=== PATIENT | male | born 1950 | race Caucasian/White ===

== ENCOUNTER 2019-02-24 10:04 | Emergency (ER) | payer MEDICARE ==
[~2019-02-24] VITALS: Ht 172.7 cm; Wt 90.7 kg
[~2019-02-24 10:04] MED LIST: ACET325 PO; AMOCLA875 PO; ASPI81EC; Aspir 8181 MG PO; Bactrim 400-801 EACH PO; CLIN300 PO; CLOP75 PO; Cleocin HCl150 MG PO; DIPATR PO; DOXY100T53 PO; Depo-Testos200 MG/ML IM; ENOX120I SC; ENOX40I SC; FERR325 PO; FIBER GUMMIES2.5 GM PO; FISH OIL 1,2001 EACH PO; FISH1000 PO; FLUT.05NI; HYDACE10B PO; HYDACE7.5; Hydrocodone-Ap1 EA20 PO; Icaps Areds Fo1 EACH PO; LAVAP17G PO; LISI20; LISI20 PO; LORA10 PO; Lyrica225 MG PO; MELO7.5; MELO7.5 PO; METH10 PO; METH5 PO; MULTI VITAMIN1 EACH PO; MULVITMIND; Mobic15 MG PO; NITR.4SL SL; NUVIGIL; NUVIGIL PO; NUVIGIL250 MG; NUVIGIL250 MG PO; NYST100SU MT; OMEP20ER PO; OMEPRAZOLE MAGN20 MG PO; OXYC5; OXYC5 PO; PREG200; PREG200 PO; SILD50TA PO; SIMCOR; SIMCOR PO; SIMV40 PO; Senna8.6 MG PO; TAMS.4ER PO; TESTOSTERO200 MG/1 M IM; Testostero100 MG/1 M; WARF3; WARF4 PO; WARF6 PO; Zofran Odt4 MG SL
[2019-02-24] MEDS ORDERED: Norco 10-325 T1 EACH PO (12:26)
== END 2019-02-24 12:45 | disposition home or self-care (01) ==
LOC: ER 10:04
DX: T84.020A Dislocation of internal right hip prosthesis, initial encounter (principal); Z88.8 Allergy status to other drugs, medicaments and biological substances; Z88.1 Allergy status to other antibiotic agents; Z88.0 Allergy status to penicillin; Z79.899 Other long term (current) drug therapy; Z79.82 Long term (current) use of aspirin; Z79.01 Long term (current) use of anticoagulants; I25.10 Atherosclerotic heart disease of native coronary artery without angina pectoris; Z86.73 Personal history of transient ischemic attack (TIA), and cerebral infarction without residual deficits; N18.9 Chronic kidney disease, unspecified; W19.XXXA Unspecified fall, initial encounter
CPT/HCPCS: 27265; 36415; 73501; 73502; 93005; 93010; 96374-59; 96375-59; 99284-25; J2270; J2405; J2704; J7030

== ENCOUNTER 2019-03-30 18:19 | Emergency (ER) | payer MEDICARE ==
[~2019-03-30] VITALS: Ht 175.3 cm; Wt 91.6 kg
[~2019-03-30 18:19] MED LIST changes: +Norco 10-325 T1 EACH PO
[2019-03-30] MEDS ORDERED: Mobic15 MG PO (18:30)
[2019-03-30] MEDS ORDERED: METH10 PO (20:11)
[2019-03-30] MEDS ORDERED: AMLO10 PO (20:11)
== END 2019-03-30 21:42 | disposition home or self-care (01) ==
LOC: ER 18:19
DX: T84.020A Dislocation of internal right hip prosthesis, initial encounter (principal); I12.9 Hypertensive chronic kidney disease with stage 1 through stage 4 chronic kidney disease, or unspecified chronic kidney disease; N18.9 Chronic kidney disease, unspecified; I25.10 Atherosclerotic heart disease of native coronary artery without angina pectoris; Z96.641 Presence of right artificial hip joint; Z86.73 Personal history of transient ischemic attack (TIA), and cerebral infarction without residual deficits; Z86.718 Personal history of other venous thrombosis and embolism; Z88.1 Allergy status to other antibiotic agents; Z88.0 Allergy status to penicillin; Z79.899 Other long term (current) drug therapy; Z79.82 Long term (current) use of aspirin; Z79.01 Long term (current) use of anticoagulants; Z79.891 Long term (current) use of opiate analgesic; X50.1XXA Overexertion from prolonged static or awkward postures, initial encounter
CPT/HCPCS: 27265; 73501; 73502; 96374-59; 96375-59; 99152; 99283-25; J2270; J2405; J2704; J3010; J7030

== ENCOUNTER 2019-04-19 22:46 | Emergency (ER) | payer MEDICARE ==
[~2019-04-19] VITALS: Ht 175.3 cm; Wt 93.0 kg
[~2019-04-19 22:46] MED LIST changes: +AMLO10 PO
[2019-04-19 23:50] LABS: BASOPHILS ABSOLUTE AUTO 0.03 K/mm3 (0.00-0.23); BASOPHILS PERCENT AUTO 0 % (0-2); EOSINOPHILS ABSOLUTE AUTO 0.04 K/mm3 (0.00-0.68); EOSINOPHILS PERCENT AUTO 1 % (0-6); Hematocrit 28.9 % (37.0-53.0); Hemoglobin 9.5 g/dL (13.5-17.5); IMMATURE GRAN ABSOLUTE AUTO 0.02 K/mm3 (0.00-0.10); IMMATURE GRAN PERCENT AUTO 0 % (0-1); LYMPHOCYTES ABSOLUTE AUTO 1.23 K/mm3 (0.84-5.20); LYMPHOCYTES PERCENT AUTO 14 % (21-46); MONOCYTES ABSOLUTE AUTO 0.44 K/mm3 (0.16-1.47); MONOCYTES PERCENT AUTO 5 % (4-13); Mean Corpuscular HGB 27.5 pg (26.0-34.0); Mean Corpuscular HGB Conc 32.9 g/dL (31.5-36.5); Mean Corpuscular Volume 84 fL (80-100); Mean Platelet Volume 9.7 fL (9.1-12.4); NEUTROPHILS ABSOLUTE AUTO 6.98 K/mm3 (1.96-9.15); NEUTROPHILS PERCENT AUTO 80 % (41-73); Platelet Count 182 K/mm3 (150-400); RDW Coefficient Variation 14.5 % (11.7-14.2); RDW Standard Deviation 43.8 fL (35.1-46.3); Red Blood Cell Count 3.46 M/mm3 (4.30-5.90); White Blood Cell Count 8.74 K/mm3 (4.00-11.30)
[2019-04-20 00:04] LABS: Anion Gap 6 mmol/L (6-16); Blood Urea Nitrogen 22 mg/dL (8-24); Bun/Creatinine Ratio 17.9 (12.0-20.0); CO2, Blood 27 mmol/L (21-32); Calcium, Blood 8.2 mg/dL (8.5-10.1); Chloride, Blood 105 mmol/L (98-108); Creatinine, Blood 1.23 mg/dL (0.60-1.20); Glomerular Filtration Rate >60 (60-); Glucose, Blood 142 mg/dL (70-99); Potassium, Blood 4.3 mmol/L (3.5-5.5); Sodium, Blood 138 mmol/L (136-145)
[2019-04-20 00:11] LABS: Prothrombin Time Results 58.9 Sec (9.7-11.5)
[2019-04-20 00:13] LABS: International Normalized Ratio 6.6
== END 2019-04-20 02:44 | disposition home or self-care (01) ==
LOC: ER 22:46
PROVIDERS: Emergency Medicine
DX: T84.020A Dislocation of internal right hip prosthesis, initial encounter (principal); X58.XXXA Exposure to other specified factors, initial encounter; Z88.8 Allergy status to other drugs, medicaments and biological substances; Z88.1 Allergy status to other antibiotic agents; Z88.0 Allergy status to penicillin; Z79.899 Other long term (current) drug therapy; Z79.82 Long term (current) use of aspirin; Z79.01 Long term (current) use of anticoagulants; I10 Essential (primary) hypertension; I25.10 Atherosclerotic heart disease of native coronary artery without angina pectoris; Z86.73 Personal history of transient ischemic attack (TIA), and cerebral infarction without residual deficits
CPT/HCPCS: 27265; 72170; 80048; 85025; 85610; 96361; 96374; 99152; 99284-25; J1170; J2704; J7030

== ENCOUNTER 2019-07-24 09:53 | Emergency (ER) | payer MEDICARE ==
[~2019-07-24] VITALS: Ht 175.3 cm; Wt 89.8 kg
== END 2019-07-24 17:36 | disposition home or self-care (01) ==
LOC: ER 09:53
DX: T84.020A Dislocation of internal right hip prosthesis, initial encounter (principal); I12.9 Hypertensive chronic kidney disease with stage 1 through stage 4 chronic kidney disease, or unspecified chronic kidney disease; N18.9 Chronic kidney disease, unspecified; I25.10 Atherosclerotic heart disease of native coronary artery without angina pectoris; Z96.641 Presence of right artificial hip joint; Z88.0 Allergy status to penicillin; Z88.8 Allergy status to other drugs, medicaments and biological substances; Z88.1 Allergy status to other antibiotic agents; Z79.82 Long term (current) use of aspirin; Z79.899 Other long term (current) drug therapy; Z86.718 Personal history of other venous thrombosis and embolism; Z86.73 Personal history of transient ischemic attack (TIA), and cerebral infarction without residual deficits; X50.1XXA Overexertion from prolonged static or awkward postures, initial encounter
CPT/HCPCS: 27265; 73501; 73502; 96374-59; 96375-59; 99152; 99284-25; J2250; J2270; J2405; J2704; J7030

== ENCOUNTER 2020-12-19 13:03 | Observation (INO) | payer MEDICARE ==
[~2020-12-19] VITALS: Ht 175.3 cm; Wt 87.9 kg
[~2020-12-19 13:03] MED LIST changes: +CLIN150 PO; +CLON.1 PO; +Daily Multiple1 EACH PO; +Fish Oil 10001000 MG PO; +IRON PO; +KRISTALOSE20 GM PO; +LOSARTAN POTASS25 M2 PO; +PREGABALIN300 MG PO; +PRESERVISION A1 EACH PO; +Roxicodone5 MG PO; -WARF3; +WARF3 PO; +Zestril30 MG PO
[2020-12-19 14:24] LABS: BASOPHILS ABSOLUTE AUTO 0.02 K/mm3 (0.00-0.23); BASOPHILS PERCENT AUTO 0 % (0-2); EOSINOPHILS ABSOLUTE AUTO 0.08 K/mm3 (0.00-0.68); EOSINOPHILS PERCENT AUTO 1 % (0-6); Hematocrit 25.8 % (37.0-53.0); Hemoglobin 8.5 g/dL (13.5-17.5); IMMATURE GRAN ABSOLUTE AUTO 0.06 K/mm3 (0.00-0.10); IMMATURE GRAN PERCENT AUTO 1 % (0-1); LYMPHOCYTES ABSOLUTE AUTO 1.47 K/mm3 (0.84-5.20); LYMPHOCYTES PERCENT AUTO 12 % (21-46); MONOCYTES ABSOLUTE AUTO 1.24 K/mm3 (0.16-1.47); MONOCYTES PERCENT AUTO 10 % (4-13); Mean Corpuscular HGB 29.9 pg (26.0-34.0); Mean Corpuscular HGB Conc 32.9 g/dL (31.5-36.5); Mean Corpuscular Volume 91 fL (80-100); Mean Platelet Volume 9.2 fL (9.1-12.4); NEUTROPHILS ABSOLUTE AUTO 9.36 K/mm3 (1.96-9.15); NEUTROPHILS PERCENT AUTO 77 % (41-73); Platelet Count 156 K/mm3 (150-400); RDW Coefficient Variation 13.9 % (11.7-14.2); RDW Standard Deviation 46.4 fL (35.1-46.3); Red Blood Cell Count 2.84 M/mm3 (4.30-5.90); White Blood Cell Count 12.23 K/mm3 (4.00-11.30)
[2020-12-19 14:41] LABS: Albumin, Blood 2.8 g/dL (3.4-5.0); Albumin/Globulin Ratio 0.6 (0.8-1.8); Bilirubin, Total 0.6 mg/dL (0.1-1.0); Calcium, Blood 8.5 mg/dL (8.5-10.1); Creatinine, Blood 2.16 mg/dL (0.60-1.20); Potassium, Blood 4.8 mmol/L (3.5-5.5); Total Protein, Blood 7.8 g/dL (6.4-8.2)
[2020-12-19] MEDS ORDERED: METHADONE HCL10 M3 PO (15:45)
[2020-12-19] MEDS ORDERED: HYDROCODONE-AC1 EAC7 PO (15:45)
[2020-12-19] MEDS ORDERED: Prinivil10 MG PO (15:46)
[2020-12-19] MEDS ORDERED: Simvastatin20 MG PO (15:46)
[2020-12-19] MEDS ORDERED: WARF3 PO (15:57)
[2020-12-19 16:01] LABS: International Normalized Ratio 2.88; Prothrombin Time Results 29.3 Sec (9.7-11.5)
[2020-12-19 18:17] LABS: Percent Saturation 4.2 % (20.0-50.0)
--- NOTE | 2020-12-19 20:34 | NUR ---
ADMIT ARRIVED TO 360 @2009. ADMITTED FOR ARF. ORIENTED TO & CALL LIGHT.
[2020-12-19 22:08] LABS: Source, Urine Catheter
[2020-12-19 22:10] LABS: Bilirubin, Urine Neg (Neg); Blood, Urine 3+ (Neg); Glucose Qualitative, Urine Neg (Neg); Ketones, Urine Neg (Neg); Leukocyte Esterase, Urine Neg (Neg); Nitrite, Urine Neg (Neg); Protein, Urine 2+ (Neg); Urobilinogen, Urine NORM (Normal)
[2020-12-19 22:17] LABS: Appearance, Urine Clear (Clear); Color, Urine Yellow (P-Yellow)
[2020-12-19 22:18] LABS: Amorphous Light (0-Heavy); Bacteria Few /hpf; Granular Casts 0-2 /lpf (0); Squamous Epithelial Cells Not Seen /hpf (Few); White Blood Cells, Urine 0-2 /hpf (0-5)
[2020-12-19 22:19] LABS: Hyaline Casts 0-2 /lpf (0-2)
[2020-12-20 04:35] LABS: BASOPHILS ABSOLUTE AUTO 0.03 K/mm3 (0.00-0.23); BASOPHILS PERCENT AUTO 0 % (0-2); EOSINOPHILS ABSOLUTE AUTO 0.29 K/mm3 (0.00-0.68); EOSINOPHILS PERCENT AUTO 3 % (0-6); Hematocrit 26.7 % (37.0-53.0); Hemoglobin 8.6 g/dL (13.5-17.5); IMMATURE GRAN ABSOLUTE AUTO 0.04 K/mm3 (0.00-0.10); IMMATURE GRAN PERCENT AUTO 0 % (0-1); LYMPHOCYTES ABSOLUTE AUTO 2.63 K/mm3 (0.84-5.20); LYMPHOCYTES PERCENT AUTO 24 % (21-46); MONOCYTES ABSOLUTE AUTO 1.19 K/mm3 (0.16-1.47); MONOCYTES PERCENT AUTO 11 % (4-13); Mean Corpuscular HGB 29.5 pg (26.0-34.0); Mean Corpuscular HGB Conc 32.2 g/dL (31.5-36.5); Mean Corpuscular Volume 91 fL (80-100); Mean Platelet Volume 9.6 fL (9.1-12.4); NEUTROPHILS ABSOLUTE AUTO 6.73 K/mm3 (1.96-9.15); NEUTROPHILS PERCENT AUTO 62 % (41-73); Platelet Count 152 K/mm3 (150-400); RDW Coefficient Variation 14.1 % (11.7-14.2); RDW Standard Deviation 47.5 fL (35.1-46.3); Red Blood Cell Count 2.92 M/mm3 (4.30-5.90); White Blood Cell Count 10.91 K/mm3 (4.00-11.30)
[2020-12-20 04:50] LABS: International Normalized Ratio 3.29; Prothrombin Time Results 33.2 Sec (9.7-11.5)
[2020-12-20 05:01] LABS: Albumin, Blood 2.6 g/dL (3.4-5.0); Albumin/Globulin Ratio 0.5 (0.8-1.8); Bilirubin, Total 0.3 mg/dL (0.1-1.0); Bun/Creatinine Ratio 19.9 (12.0-20.0); Calcium, Blood 8.2 mg/dL (8.5-10.1); Creatinine, Blood 1.71 mg/dL (0.60-1.20); Globulin, Blood 4.9 g/dL (2.2-4.0); Potassium, Blood 4.4 mmol/L (3.5-5.5); Total Protein, Blood 7.5 g/dL (6.4-8.2)
--- NOTE | 2020-12-20 05:45 | NUR ---
SHIFT SUMMARY AOX3, FORGETFUL @TIMES. SLOW TO RESPOND. FOLLOWS SIMPLE DIRECTIONS. 103.3 PO TEMP UPON ARRIVAL TO FLOOR, MEDICATED c TYLENOL, TURNED RM TEMP DOWN, REMOVED BLANKETS & APPLIED ICE PACKS-THIS AM PT AFEBRILE @97.5. REST OF VITALS STABLE. TELE NSR @83. 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 REPORTS 5/10 PAIN IN R FOOT c TOUCH, STATES ICE HELPS. R FOOT IS SWOLLEN, HAS REDNESS & WARM TO TOUCH, NO OPEN WOUND NOTICED-DX c CELLULITIS, RECIEVING ANTIBIOTICS. NS @100ML/HR. SBY ASSIST @THIS TIME. CALL LIGHT IN REACH & PT FORGETS TO USE FOR HELP, BED ALARM IN PLACE. WCTM.
--- NOTE | 2020-12-20 14:57 | NUR ---
DISCHARGE INSTRUCTIONS COMPLETED AND DISCUSSED WITH PT EXPRESSING UNDERSTANDING. NO NEW SCRIPTS. REPORTED THIS MORNING FEELING SOMETHING BITE HIM ON THE BACK OF HIS HEAD AND FOUND A TICK WHICH HE REMOVED. HAD A HAT ON PRIOR TO BITE OCCURING. R FOOT SWOLLEN BUT DOES APPEAR ONLY PINK AT THIS POINT AND MINIMAL INCREASE IN WARMTH COMPARED TO LLE. HERE TO PICK PT UP. TO [facility] VIA W/C.
== END 2020-12-20 14:50 | disposition home or self-care (01) ==
LOC: ER 13:03 → MEDS 13:04 → ER 17:30 → MEDS 17:30
PROVIDERS: Emergency Medicine; Physician Assistant; ADMIT Internal Medicine
DX: N17.9 Acute kidney failure, unspecified (principal); M86.611 Other chronic osteomyelitis, right shoulder; I12.9 Hypertensive chronic kidney disease with stage 1 through stage 4 chronic kidney disease, or unspecified chronic kidney disease; R26.81 Unsteadiness on feet; N18.30 Chronic kidney disease, stage 3 unspecified; E78.5 Hyperlipidemia, unspecified; G25.71 Drug induced akathisia; L03.115 Cellulitis of right lower limb; K21.9 Gastro-esophageal reflux disease without esophagitis; M79.89 Other specified soft tissue disorders; G47.10 Hypersomnia, unspecified; R47.81 Slurred speech; S92.321A Displaced fracture of second metatarsal bone, right foot, initial encounter for closed fracture; S70.11XA Contusion of right thigh, initial encounter; I25.10 Atherosclerotic heart disease of native coronary artery without angina pectoris; E23.0 Hypopituitarism; G25.81 Restless legs syndrome; G89.29 Other chronic pain; D63.8 Anemia in other chronic diseases classified elsewhere; Z79.01 Long term (current) use of anticoagulants; W19.XXXA Unspecified fall, initial encounter; Z95.5 Presence of coronary angioplasty implant and graft; Z86.718 Personal history of other venous thrombosis and embolism; Z88.1 Allergy status to other antibiotic agents; Z86.73 Personal history of transient ischemic attack (TIA), and cerebral infarction without residual deficits; Z96.641 Presence of right artificial hip joint
CPT/HCPCS: 36415; 70450; 73700; 80053; 81001; 82728; 83540; 83550; 84443; 85025; 85610; 86140; 87040; 93005; 93010; 96361; 96365; 96366; 96375; 99285-25; A9270; G0378; J3360; J3370; J7030; J7050

== ENCOUNTER 2020-12-26 08:42 | Emergency (ER) | payer MEDICARE ==
[~2020-12-26] VITALS: Ht 175.3 cm; Wt 83.0 kg
[~2020-12-26 08:42] MED LIST changes: +HYDROCODONE-AC1 EAC7 PO; +METHADONE HCL10 M3 PO; +Prinivil10 MG PO; +Simvastatin20 MG PO
[2020-12-26] MEDS ORDERED: SULTRIDS PO (09:24)
[2020-12-26 09:47] LABS: BASOPHILS ABSOLUTE AUTO 0.05 K/mm3 (0.00-0.23); BASOPHILS PERCENT AUTO 1 % (0-2); EOSINOPHILS ABSOLUTE AUTO 0.38 K/mm3 (0.00-0.68); EOSINOPHILS PERCENT AUTO 5 % (0-6); Hematocrit 28.7 % (37.0-53.0); Hemoglobin 9.3 g/dL (13.5-17.5); IMMATURE GRAN ABSOLUTE AUTO 0.07 K/mm3 (0.00-0.10); IMMATURE GRAN PERCENT AUTO 1 % (0-1); LYMPHOCYTES PERCENT AUTO 23 % (21-46); MONOCYTES ABSOLUTE AUTO 0.48 K/mm3 (0.16-1.47); MONOCYTES PERCENT AUTO 6 % (4-13); Mean Corpuscular HGB 29.2 pg (26.0-34.0); Mean Corpuscular HGB Conc 32.4 g/dL (31.5-36.5); Mean Corpuscular Volume 90 fL (80-100); Mean Platelet Volume 9.2 fL (9.1-12.4); NEUTROPHILS ABSOLUTE AUTO 4.98 K/mm3 (1.96-9.15); NEUTROPHILS PERCENT AUTO 64 % (41-73); Platelet Count 261 K/mm3 (150-400); RDW Coefficient Variation 14.2 % (11.7-14.2); RDW Standard Deviation 47.4 fL (35.1-46.3); Red Blood Cell Count 3.19 M/mm3 (4.30-5.90); White Blood Cell Count 7.76 K/mm3 (4.00-11.30)
[2020-12-26 10:07] LABS: Alanine Aminotransfer (ALT/SGP 51 U/L (12-78); Albumin, Blood 2.7 g/dL (3.4-5.0); Albumin/Globulin Ratio 0.5 (0.8-1.8); Alk Phos 148 U/L (50-136); Anion Gap 5 mmol/L (6-16); Aspartate Aminotrans (AST/SGOT 34 U/L (12-37); Bilirubin, Total 0.2 mg/dL (0.1-1.0); Blood Urea Nitrogen 42 mg/dL (8-24); Bun/Creatinine Ratio 21.8 (12.0-20.0); CO2, Blood 23 mmol/L (21-32); CPK Creatine Kinase 121 U/L (39-308); Calcium, Blood 8.8 mg/dL (8.5-10.1); Chloride, Blood 108 mmol/L (98-108); Creatinine, Blood 1.93 mg/dL (0.60-1.20); Globulin, Blood 5.7 g/dL (2.2-4.0); Glomerular Filtration Rate 37 (60-); Glucose, Blood 99 mg/dL (70-99); Potassium, Blood 5.1 mmol/L (3.5-5.5); Sodium, Blood 136 mmol/L (136-145); Total Protein, Blood 8.4 g/dL (6.4-8.2); Troponin I <0.015 ng/mL (0.000-0.040)
[2020-12-26 10:53] LABS: International Normalized Ratio 3.3; Prothrombin Time Results 33.3 Sec (9.7-11.5)
== END 2020-12-26 12:43 | disposition home or self-care (01) ==
LOC: ER 08:42
PROVIDERS: Emergency Medicine
DX: R60.0 Localized edema (principal); Z79.01 Long term (current) use of anticoagulants; Z79.899 Other long term (current) drug therapy
CPT/HCPCS: 36415; 80053; 82550; 84484; 85025; 85610; 93005; 93010; 96374; 96375; 99283-25; J2405; J3010

== ENCOUNTER 2021-10-16 11:45 | Emergency (ER) | payer MEDICARE ==
[~2021-10-16] VITALS: Ht 175.3 cm; Wt 86.2 kg
[~2021-10-16 11:45] MED LIST changes: +SULTRIDS PO
[2021-10-16 12:55] LABS: BASOPHILS ABSOLUTE AUTO 0.04 K/mm3 (0.00-0.23); BASOPHILS PERCENT AUTO 0 % (0-2); EOSINOPHILS ABSOLUTE AUTO 0.37 K/mm3 (0.00-0.68); EOSINOPHILS PERCENT AUTO 4 % (0-6); Hematocrit 31.2 % (37.0-53.0); IMMATURE GRAN ABSOLUTE AUTO 0.02 K/mm3 (0.00-0.10); IMMATURE GRAN PERCENT AUTO 0 % (0-1); LYMPHOCYTES ABSOLUTE AUTO 1.82 K/mm3 (0.84-5.20); LYMPHOCYTES PERCENT AUTO 19 % (21-46); MONOCYTES ABSOLUTE AUTO 0.56 K/mm3 (0.16-1.47); MONOCYTES PERCENT AUTO 6 % (4-13); Mean Corpuscular HGB 28.7 pg (26.0-34.0); Mean Corpuscular HGB Conc 32.1 g/dL (31.5-36.5); Mean Corpuscular Volume 89 fL (80-100); Mean Platelet Volume 9.5 fL (9.1-12.4); NEUTROPHILS ABSOLUTE AUTO 7.05 K/mm3 (1.96-9.15); NEUTROPHILS PERCENT AUTO 71 % (41-73); Platelet Count 257 K/mm3 (150-400); RDW Coefficient Variation 14.1 % (11.7-14.2); RDW Standard Deviation 45.3 fL (35.1-46.3); Red Blood Cell Count 3.49 M/mm3 (4.30-5.90); White Blood Cell Count 9.86 K/mm3 (4.00-11.30)
[2021-10-16 13:23] LABS: Alanine Aminotransfer (ALT/SGP 23 U/L (12-78); Albumin, Blood 3.3 g/dL (3.4-5.0); Albumin/Globulin Ratio 0.6 (0.8-1.8); Alk Phos 187 U/L (50-136); Anion Gap 2 mmol/L (6-16); Aspartate Aminotrans (AST/SGOT 25 U/L (12-37); Bilirubin, Total 0.2 mg/dL (0.1-1.0); Blood Urea Nitrogen 34 mg/dL (8-24); Bun/Creatinine Ratio 30.1 (12.0-20.0); CO2, Blood 26 mmol/L (21-32); Calcium, Blood 8.8 mg/dL (8.5-10.1); Chloride, Blood 109 mmol/L (98-108); Creatinine, Blood 1.13 mg/dL (0.60-1.20); Globulin, Blood 5.4 g/dL (2.2-4.0); Glomerular Filtration Rate >60 (60-); Glucose, Blood 105 mg/dL (70-99); Potassium, Blood 4.8 mmol/L (3.5-5.5); Sodium, Blood 137 mmol/L (136-145); Total Protein, Blood 8.7 g/dL (6.4-8.2)
== END 2021-10-16 14:25 | disposition left against medical advice (07) ==
LOC: ER 11:45
PROVIDERS: Physician Assistant
DX: Z53.21 Procedure and treatment not carried out due to patient leaving prior to being seen by health care provider (principal)
CPT/HCPCS: 36415; 74176; 80053; 85025

== ENCOUNTER 2022-03-05 11:12 | Emergency (ER) | payer MEDICARE ==
[~2022-03-05] VITALS: Ht 175.3 cm; Wt 88.0 kg
== END 2022-03-05 15:10 | disposition home or self-care (01) ==
LOC: ER 11:12
DX: M77.11 Lateral epicondylitis, right elbow (principal); I10 Essential (primary) hypertension; I25.10 Atherosclerotic heart disease of native coronary artery without angina pectoris; Z88.1 Allergy status to other antibiotic agents; Z88.0 Allergy status to penicillin; Z79.899 Other long term (current) drug therapy; Z79.82 Long term (current) use of aspirin; Z79.01 Long term (current) use of anticoagulants; Z86.718 Personal history of other venous thrombosis and embolism
CPT/HCPCS: 73080; J1885

== ENCOUNTER 2022-10-21 06:12 | Emergency (ER) | payer MEDICARE ==
[~2022-10-21] VITALS: Ht 175.3 cm; Wt 83.9 kg
[2022-10-21 07:19] LABS: BASOPHILS ABSOLUTE AUTO 0.03 K/mm3 (0.00-0.23); BASOPHILS PERCENT AUTO 0 % (0-2); EOSINOPHILS ABSOLUTE AUTO 0.13 K/mm3 (0.00-0.68); EOSINOPHILS PERCENT AUTO 1 % (0-6); Hematocrit 24.4 % (37.0-53.0); Hemoglobin 7.8 g/dL (13.5-17.5); IMMATURE GRAN ABSOLUTE AUTO 0.03 K/mm3 (0.00-0.10); IMMATURE GRAN PERCENT AUTO 0 % (0-1); LYMPHOCYTES ABSOLUTE AUTO 1.43 K/mm3 (0.84-5.20); LYMPHOCYTES PERCENT AUTO 14 % (21-46); MONOCYTES ABSOLUTE AUTO 0.57 K/mm3 (0.16-1.47); MONOCYTES PERCENT AUTO 5 % (4-13); Mean Corpuscular HGB 24.1 pg (26.0-34.0); Mean Corpuscular Volume 75 fL (80-100); Mean Platelet Volume 9.5 fL (9.1-12.4); NEUTROPHILS ABSOLUTE AUTO 8.32 K/mm3 (1.96-9.15); NEUTROPHILS PERCENT AUTO 79 % (41-73); Platelet Count 263 K/mm3 (150-400); RDW Coefficient Variation 18.3 % (11.7-14.2); RDW Standard Deviation 49.6 fL (35.1-46.3); Red Blood Cell Count 3.24 M/mm3 (4.30-5.90); White Blood Cell Count 10.51 K/mm3 (4.00-11.30)
[2022-10-21 07:34] LABS: International Normalized Ratio 1.82; Prothrombin Time Results 18.5 Sec (9.7-11.5)
[2022-10-21 07:37] LABS: Albumin, Blood 2.9 g/dL (3.4-5.0); Albumin/Globulin Ratio 0.5 (0.8-1.8); Bilirubin, Total 0.3 mg/dL (0.1-1.0); Bun/Creatinine Ratio 26.3 (12.0-20.0); Calcium, Blood 9.1 mg/dL (8.5-10.1); Creatinine, Blood 1.18 mg/dL (0.60-1.20); Globulin, Blood 5.7 g/dL (2.2-4.0); Potassium, Blood 4.2 mmol/L (3.5-5.5); Total Protein, Blood 8.6 g/dL (6.4-8.2)
[2022-10-21 09:30] VITALS: BP 106/60
[2022-10-21] MEDS ORDERED: PROM25 PO (09:41)
[2022-10-21] MEDS ORDERED: DICY20 PO (09:41)
[2022-10-21] MEDS ORDERED: HYDHCL25 PO (09:41)
== END 2022-10-21 09:55 | disposition home or self-care (01) ==
LOC: ER 06:12
PROVIDERS: Emergency Medicine
DX: R10.9 Unspecified abdominal pain (principal); R11.2 Nausea with vomiting, unspecified; D64.9 Anemia, unspecified
CPT/HCPCS: 80053; 83690; 85025; 85610; 96361; 96374; 99284-25; A9270; J2550; J7030

== ENCOUNTER 2023-05-07 05:41 | Emergency (ER) | payer MEDICARE ==
[~2023-05-07] VITALS: Ht 175.3 cm; Wt 72.6 kg
[~2023-05-07 05:41] MED LIST changes: +DICY20 PO; +HYDHCL25 PO; +PROM25 PO
[2023-05-07 06:04] LABS: BASOPHILS ABSOLUTE AUTO 0.04 K/mm3 (0.00-0.23); BASOPHILS PERCENT AUTO 0 % (0-2); EOSINOPHILS ABSOLUTE AUTO 0.42 K/mm3 (0.00-0.68); EOSINOPHILS PERCENT AUTO 4 % (0-6); Hematocrit 29.3 % (37.0-53.0); Hemoglobin 9.9 g/dL (13.5-17.5); IMMATURE GRAN ABSOLUTE AUTO 0.04 K/mm3 (0.00-0.10); IMMATURE GRAN PERCENT AUTO 0 % (0-1); LYMPHOCYTES ABSOLUTE AUTO 1.75 K/mm3 (0.84-5.20); LYMPHOCYTES PERCENT AUTO 18 % (21-46); MONOCYTES ABSOLUTE AUTO 0.74 K/mm3 (0.16-1.47); MONOCYTES PERCENT AUTO 8 % (4-13); Mean Corpuscular HGB Conc 33.8 g/dL (31.5-36.5); Mean Corpuscular Volume 86 fL (80-100); Mean Platelet Volume 9.3 fL (9.1-12.4); NEUTROPHILS ABSOLUTE AUTO 6.64 K/mm3 (1.96-9.15); NEUTROPHILS PERCENT AUTO 69 % (41-73); Platelet Count 171 K/mm3 (150-400); RDW Coefficient Variation 18.6 % (11.7-14.2); RDW Standard Deviation 58.8 fL (35.1-46.3); Red Blood Cell Count 3.41 M/mm3 (4.30-5.90); White Blood Cell Count 9.63 K/mm3 (4.00-11.30)
[2023-05-07 06:18] LABS: International Normalized Ratio 2.7; Prothrombin Time Results 26.8 Sec (9.7-11.5)
[2023-05-07 06:22] LABS: Albumin, Blood 3.1 g/dL (3.4-5.0); Albumin/Globulin Ratio 0.6 (0.8-1.8); Bilirubin, Total 0.3 mg/dL (0.1-1.0); Bun/Creatinine Ratio 31.6 (12.0-20.0); Calcium, Blood 8.3 mg/dL (8.5-10.1); Creatinine, Blood 1.33 mg/dL (0.60-1.20); Globulin, Blood 5.2 g/dL (2.2-4.0); Potassium, Blood 4.4 mmol/L (3.5-5.5); Total Protein, Blood 8.3 g/dL (6.4-8.2)
[2023-05-07 08:45] VITALS: BP 126/64
[2023-05-07 08:47] LABS: Source, Urine Clean Catch
[2023-05-07 08:50] LABS: Appearance, Urine Clear (Clear); Bilirubin, Urine Neg (Neg); Blood, Urine 1+ (Neg); Color, Urine Yellow (P-Yellow); Glucose Qualitative, Urine Neg (Neg); Ketones, Urine Neg (Neg); Leukocyte Esterase, Urine Neg (Neg); Nitrite, Urine Neg (Neg); Protein, Urine 1+ (Neg); Specific Gravity, Urine 1.015 (1.003-1.022); Urobilinogen, Urine NORM (Normal)
[2023-05-07 08:57] LABS: Bacteria Not Seen /hpf; Squamous Epithelial Cells Not Seen /hpf (Few); White Blood Cells, Urine Not Seen /hpf (0-5)
[2023-05-07] MEDS ORDERED: ONDA4ODT MM (09:07)
[2023-05-07] MEDS ORDERED: DICY20 PO (09:07)
== END 2023-05-07 09:43 | disposition home or self-care (01) ==
LOC: ER 05:41
PROVIDERS: Emergency Medicine; Student in an Organized Health Care Education/Training Program
DX: R10.9 Unspecified abdominal pain (principal); R11.2 Nausea with vomiting, unspecified; K59.00 Constipation, unspecified; R51.9 Headache, unspecified; I12.9 Hypertensive chronic kidney disease with stage 1 through stage 4 chronic kidney disease, or unspecified chronic kidney disease; N18.9 Chronic kidney disease, unspecified; E78.5 Hyperlipidemia, unspecified; Z79.01 Long term (current) use of anticoagulants; Z79.899 Other long term (current) drug therapy; Z88.0 Allergy status to penicillin; Z88.1 Allergy status to other antibiotic agents; Z79.82 Long term (current) use of aspirin
CPT/HCPCS: 70450; 74177; 80053; 81001; 83690; 85025; 85610; 93005; 93010; 96374-59; 96375; 99285-25; A9270; J2405; J2765; Q9967

== ENCOUNTER → 2023-05-15 | Outpatient (CLI) | payer MEDICARE ==
[~2023-05-15] MED LIST changes: +ONDA4ODT MM
== END | disposition home or self-care (01) ==
LOC: LAB 12:10 → LAB SHORT 12:10
DX: D48.5 Neoplasm of uncertain behavior of skin (principal); L08.9 Local infection of the skin and subcutaneous tissue, unspecified; L57.8 Other skin changes due to chronic exposure to nonionizing radiation
CPT/HCPCS: 87070; 87205

== ENCOUNTER → 2023-05-22 | Outpatient (CLI) | payer MEDICARE | LOC: LAB SHORT 17:35 → LAB 17:35 | DX: D48.5 Neoplasm of uncertain behavior of skin (principal) | CPT/HCPCS: 87070; 87205 ==

== ENCOUNTER 2023-05-27 13:47 | Emergency (ER) | payer OTHER, MEDICARE ==
[~2023-05-27] VITALS: Ht 175.3 cm; Wt 74.8 kg
[2023-05-27 14:48] LABS: BASOPHILS ABSOLUTE AUTO 0.03 K/mm3 (0.00-0.23); BASOPHILS PERCENT AUTO 0 % (0-2); EOSINOPHILS ABSOLUTE AUTO 0.42 K/mm3 (0.00-0.68); EOSINOPHILS PERCENT AUTO 5 % (0-6); Hemoglobin 9.7 g/dL (13.5-17.5); IMMATURE GRAN ABSOLUTE AUTO 0.03 K/mm3 (0.00-0.10); IMMATURE GRAN PERCENT AUTO 0 % (0-1); LYMPHOCYTES ABSOLUTE AUTO 2.18 K/mm3 (0.84-5.20); LYMPHOCYTES PERCENT AUTO 27 % (21-46); MONOCYTES ABSOLUTE AUTO 0.61 K/mm3 (0.16-1.47); MONOCYTES PERCENT AUTO 8 % (4-13); Mean Corpuscular HGB 30.3 pg (26.0-34.0); Mean Corpuscular HGB Conc 33.4 g/dL (31.5-36.5); Mean Corpuscular Volume 91 fL (80-100); NEUTROPHILS ABSOLUTE AUTO 4.72 K/mm3 (1.96-9.15); NEUTROPHILS PERCENT AUTO 59 % (41-73); Platelet Count 220 K/mm3 (150-400); RDW Coefficient Variation 16.6 % (11.7-14.2); RDW Standard Deviation 55.2 fL (35.1-46.3); White Blood Cell Count 7.99 K/mm3 (4.00-11.30)
[2023-05-27 15:22] LABS: Albumin/Globulin Ratio 0.5 (0.8-1.8); Bilirubin, Total 0.2 mg/dL (0.1-1.0); Bun/Creatinine Ratio 29.5 (12.0-20.0); Creatinine, Blood 1.46 mg/dL (0.60-1.20); Globulin, Blood 5.5 g/dL (2.2-4.0); Potassium, Blood 5.2 mmol/L (3.5-5.5); Total Protein, Blood 8.5 g/dL (6.4-8.2)
[2023-05-27 16:30] VITALS: BP 126/83
== END 2023-05-27 18:46 | disposition home or self-care (01) ==
LOC: ER 13:47
PROVIDERS: Student in an Organized Health Care Education/Training Program
DX: M86.9 Osteomyelitis, unspecified (principal); I10 Essential (primary) hypertension; I25.10 Atherosclerotic heart disease of native coronary artery without angina pectoris; I69.992 Facial weakness following unspecified cerebrovascular disease; Z79.01 Long term (current) use of anticoagulants
CPT/HCPCS: 73201; 80053; 85025; 85651; 86140; 96365; 99284-25; J3370; Q9967

== ENCOUNTER 2023-05-29 10:53 | Day surgery (SDC) | payer OTHER, MEDICARE ==
[2023-05-29 16:46] VITALS: BP 172/92
--- NOTE | 2023-05-29 16:58 | NUR ---
ATTEMPTED POWER-GLIDE X2 WITH NO SUCCESS IN L ARM. SULAIMAN AND MARYLOU APPLIED AND ASKED PT TO LEAVE ON UNTIL GETS HOME.
== END 2023-05-29 18:21 | disposition home or self-care (01) ==
LOC: ATC 10:53
DX: M86.611 Other chronic osteomyelitis, right shoulder (principal)
CPT/HCPCS: 96365; 96366; C1751; J2001; J3370; J7050

== ENCOUNTER 2023-05-30 07:53 | Day surgery (SDC) | payer OTHER, MEDICARE ==
[2023-05-30 08:00] VITALS: BP 132/78
--- NOTE | 2023-05-30 08:18 | NUR ---
LABS DRAWN. DISCUSSED WITH PATIENT HIS OPTIONS REGARDING PLACING A HOUSE DESIGNER LINE, PICC OR POWERGLIDE, AND THAT IF HE DOES MOVE FORWARD WITH HOME INFUSIONS HE WOULD NEED A PICC LINE. PATIENT REQUESTED THAT HE WAIT IN HIS CAR WITH HIS WHILE HE WAITS FOR HIS MEDICATION TO BE MADE. HE WOULD LIKE TO AWAIT FURTHER DOSING INSTRUCTION FROM PHARMACY BEFORE DECIDING HOW TO PROCEED WITH A NEW IV LINE. CURRENT PIV IS PATENT, POSITIVE FOR BLOOD RETURN, WITH NO SIGNS OF REDNESS OR SWELLING. PATIENT LEFT HIS PHONE NUMBER TO CALL HIM IF HIS MEDICATION IS READY BEFORE HE RETURNS
[2023-05-30 08:53] LABS: Vancomycin, Random 22.5 ug/mL
--- NOTE | 2023-05-30 09:24 | NUR ---
PHARMACY CHANGED VANCO DOSING TO 1250 MG DAILY WITH REPEAT LABS ON 06/01/23
== END 2023-05-30 10:42 | disposition home or self-care (01) ==
LOC: ATC 07:53
PROVIDERS: Family Medicine
DX: M86.611 Other chronic osteomyelitis, right shoulder (principal)
CPT/HCPCS: 80202; 82565; 96365; C1751; J3370; J7050

== ENCOUNTER 2023-05-31 07:49 | Day surgery (SDC) | payer OTHER, MEDICARE ==
[2023-05-31 08:02] VITALS: BP 142/80
== END 2023-05-31 09:17 | disposition home or self-care (01) ==
LOC: ATC 07:49
DX: M86.611 Other chronic osteomyelitis, right shoulder (principal)
CPT/HCPCS: 96365; J3370; J7050

== ENCOUNTER 2023-06-01 04:27 | Day surgery (SDC) | payer OTHER, MEDICARE ==
[~2023-06-01] VITALS: Ht 175.3 cm; Wt 75.0 kg
[2023-06-01 07:52] VITALS: BP 153/79
--- NOTE | 2023-06-01 08:10 | NUR ---
PT ARRIVED AT 0752 FOR LAB DRAW PRIOR TO ANTIBIOTIC INFUSION. LABS DRAWN PER PROTOCOL. PT THEN REQUESTED TO SIT IN CAR WITH HIS WHILE WE WAIT FOR THE LAB RESULTS. PT LEFT HIS CELL NUMBER FOR ME TO CALL WHEN RESULTS ARE BACK. ADVISED PT THAT HIS WAS WELCOME TO COME IN WITH HIM DURING HIS APPOINTMENTS. PT VERBALIZED UNDERSTANDING
[2023-06-01 08:48] LABS: Creatinine, Blood 1.33 mg/dL (0.60-1.20)
[2023-06-01 08:58] LABS: Vancomycin, Trough 22.8 ug/mL (5.0-10.0)
--- NOTE | 2023-06-01 09:41 | NUR ---
KAMILLE IN THE PHARMACY CALLED STATING NOT TO GIVE VANCO TODAY BASED ON LABS. PT TO COME TOMORROW AND RECEIVE AM DOSE OF VANCO. PHARMACY WILL WRITE NEW ORDERS FOR LAB WORK TO BE DONE IN A FEW DAYS. PT EDUCATED AND VERBALIZED UNDERSTANDING
== END 2023-06-01 09:09 | disposition home or self-care (01) ==
LOC: ATC 04:27
PROVIDERS: Family Medicine
DX: M86.611 Other chronic osteomyelitis, right shoulder (principal)
CPT/HCPCS: 36592; 80202; 82565

== ENCOUNTER 2023-06-02 07:51 | Day surgery (SDC) | payer OTHER, MEDICARE ==
[2023-06-02 08:00] VITALS: BP 146/66
== END 2023-06-02 08:59 | disposition home or self-care (01) ==
LOC: ATC 07:51
DX: M86.411 Chronic osteomyelitis with draining sinus, right shoulder (principal); I10 Essential (primary) hypertension; I25.10 Atherosclerotic heart disease of native coronary artery without angina pectoris; I69.992 Facial weakness following unspecified cerebrovascular disease; G89.29 Other chronic pain; Z86.718 Personal history of other venous thrombosis and embolism; Z79.01 Long term (current) use of anticoagulants; Z79.899 Other long term (current) drug therapy
CPT/HCPCS: 96365; J3370

== ENCOUNTER 2023-06-03 02:27 | Day surgery (SDC) | payer OTHER, MEDICARE ==
[2023-06-03 08:00] VITALS: BP 174/74
== END 2023-06-03 09:05 | disposition home or self-care (01) ==
LOC: ATC 02:27
DX: M86.611 Other chronic osteomyelitis, right shoulder (principal)
CPT/HCPCS: 96365; J3370

== ENCOUNTER 2023-06-04 01:28 | Day surgery (SDC) | payer OTHER, MEDICARE ==
[2023-06-04 08:00] VITALS: BP 140/67
[2023-06-04 08:29] LABS: Creatinine, Blood 1.17 mg/dL (0.60-1.20); Vancomycin, Trough 17.3 ug/mL (5.0-10.0)
== END 2023-06-04 09:57 | disposition home or self-care (01) ==
LOC: ATC 01:28
PROVIDERS: Family Medicine
DX: M86.411 Chronic osteomyelitis with draining sinus, right shoulder (principal)
CPT/HCPCS: 80202; 82565; 96365; J3370

== ENCOUNTER 2023-06-05 01:48 | Day surgery (SDC) | payer OTHER, MEDICARE ==
[2023-06-05 08:10] VITALS: BP 143/75
== END 2023-06-05 09:01 | disposition home or self-care (01) ==
LOC: ATC 01:48
DX: M86.611 Other chronic osteomyelitis, right shoulder (principal)
CPT/HCPCS: 96365; J3370

== ENCOUNTER 2023-06-06 02:23 | Day surgery (SDC) | payer OTHER, MEDICARE ==
[2023-06-06 08:20] VITALS: BP 151/58
== END 2023-06-06 09:17 | disposition home or self-care (01) ==
LOC: ATC 02:23
DX: M86.411 Chronic osteomyelitis with draining sinus, right shoulder (principal); I10 Essential (primary) hypertension; I25.10 Atherosclerotic heart disease of native coronary artery without angina pectoris; I69.90 Unspecified sequelae of unspecified cerebrovascular disease; G89.29 Other chronic pain; Z86.718 Personal history of other venous thrombosis and embolism; Z79.01 Long term (current) use of anticoagulants; Z79.899 Other long term (current) drug therapy
CPT/HCPCS: 96365; J3370

== ENCOUNTER 2023-06-07 07:31 | Day surgery (SDC) | payer OTHER, MEDICARE ==
[2023-06-07 07:34] VITALS: BP 135/78
[2023-06-07 08:21] LABS: Creatinine, Blood 1.18 mg/dL (0.60-1.20)
[2023-06-07 08:22] LABS: Vancomycin, Trough 20.1 ug/mL (5.0-10.0)
== END 2023-06-07 09:39 | disposition home or self-care (01) ==
LOC: ATC 07:31
PROVIDERS: Family Medicine
DX: M86.611 Other chronic osteomyelitis, right shoulder (principal)
CPT/HCPCS: 80202; 82565; 96365; J3370

== ENCOUNTER 2023-06-08 03:19 | Day surgery (SDC) | payer OTHER, MEDICARE ==
[2023-06-08 07:35] VITALS: BP 144/70
== END 2023-06-08 08:25 | disposition home or self-care (01) ==
LOC: ATC 03:19
DX: M86.611 Other chronic osteomyelitis, right shoulder (principal)
CPT/HCPCS: 96365; J3370

== ENCOUNTER 2023-06-09 04:12 | Day surgery (SDC) | payer OTHER, MEDICARE ==
[~2023-06-09] VITALS: Ht 175.3 cm; Wt 75.0 kg
[2023-06-09 08:33] LABS: Alanine Aminotransfer (ALT/SGP 26 U/L (12-78); Albumin, Blood 3.1 g/dL (3.4-5.0); Albumin/Globulin Ratio 0.6 (0.8-1.8); Alk Phos 141 U/L (50-136); Anion Gap 2 mmol/L (6-16); Aspartate Aminotrans (AST/SGOT 23 U/L (12-37); Bilirubin, Total 0.4 mg/dL (0.1-1.0); Blood Urea Nitrogen 43 mg/dL (8-24); Bun/Creatinine Ratio 34.7 (12.0-20.0); CO2, Blood 26 mmol/L (21-32); Calcium, Blood 8.2 mg/dL (8.5-10.1); Chloride, Blood 111 mmol/L (98-108); Creatinine, Blood 1.24 mg/dL (0.60-1.20); Globulin, Blood 5.2 g/dL (2.2-4.0); Glomerular Filtration Rate 62 (60-); Glucose, Blood 91 mg/dL (70-99); Potassium, Blood 4.5 mmol/L (3.5-5.5); Sodium, Blood 139 mmol/L (136-145); Total Protein, Blood 8.3 g/dL (6.4-8.2); Vancomycin, Trough 18.1 ug/mL (5.0-10.0)
[2023-06-09 08:46] VITALS: BP 111/60
== END 2023-06-09 09:32 | disposition home or self-care (01) ==
LOC: ATC 04:12
PROVIDERS: Family Medicine
DX: M86.411 Chronic osteomyelitis with draining sinus, right shoulder (principal)
CPT/HCPCS: 80053; 80202; 96365; J3370

== ENCOUNTER 2023-06-10 04:12 | Day surgery (SDC) | payer OTHER, MEDICARE ==
[2023-06-10 07:43] VITALS: BP 115/66
== END 2023-06-10 08:26 | disposition home or self-care (01) ==
LOC: ATC 04:12
DX: M86.611 Other chronic osteomyelitis, right shoulder (principal)
CPT/HCPCS: 96365; J3370

== ENCOUNTER 2023-06-11 03:03 | Day surgery (SDC) | payer OTHER, MEDICARE ==
[2023-06-11 08:17] LABS: Creatinine, Blood 1.23 mg/dL (0.60-1.20); Vancomycin, Trough 17.9 ug/mL (5.0-10.0)
[2023-06-11 08:35] VITALS: BP 166/78
== END 2023-06-11 09:31 | disposition home or self-care (01) ==
LOC: ATC 03:03
PROVIDERS: Family Medicine
DX: M86.611 Other chronic osteomyelitis, right shoulder (principal)
CPT/HCPCS: 80202; 82565; 96365; J3370

== ENCOUNTER 2023-06-12 01:57 | Day surgery (SDC) | payer OTHER, MEDICARE ==
[2023-06-12 07:53] VITALS: BP 108/65
== END 2023-06-12 08:33 | disposition home or self-care (01) ==
LOC: ATC 01:57
DX: M86.611 Other chronic osteomyelitis, right shoulder (principal)
CPT/HCPCS: 96365; J3370

== ENCOUNTER 2023-06-13 01:06 | Day surgery (SDC) | payer OTHER, MEDICARE ==
[2023-06-13 07:38] VITALS: BP 134/81
== END 2023-06-13 08:21 | disposition home or self-care (01) ==
LOC: ATC 01:06
DX: M86.411 Chronic osteomyelitis with draining sinus, right shoulder (principal); I25.10 Atherosclerotic heart disease of native coronary artery without angina pectoris; I10 Essential (primary) hypertension; I69.992 Facial weakness following unspecified cerebrovascular disease; G89.29 Other chronic pain; Z86.718 Personal history of other venous thrombosis and embolism; Z79.01 Long term (current) use of anticoagulants; Z79.899 Other long term (current) drug therapy
CPT/HCPCS: 96365; J3370

== ENCOUNTER 2023-06-14 03:03 | Day surgery (SDC) | payer OTHER, MEDICARE ==
[~2023-06-14] VITALS: Ht 175.3 cm; Wt 75.0 kg
[2023-06-14 07:30] VITALS: BP 125/72
[2023-06-14 08:06] LABS: Creatinine, Blood 1.18 mg/dL (0.60-1.20)
== END 2023-06-14 09:15 | disposition home or self-care (01) ==
LOC: ATC 03:03
PROVIDERS: Family Medicine
DX: M86.611 Other chronic osteomyelitis, right shoulder (principal)
CPT/HCPCS: 80202; 82565; 96365; J3370

== ENCOUNTER 2023-06-15 02:34 | Day surgery (SDC) | payer OTHER, MEDICARE ==
[2023-06-15 07:41] VITALS: BP 133/61
== END 2023-06-15 08:25 | disposition home or self-care (01) ==
LOC: ATC 02:34
DX: M86.611 Other chronic osteomyelitis, right shoulder (principal)
CPT/HCPCS: 96365; J3370

== ENCOUNTER 2023-06-16 02:10 | Day surgery (SDC) | payer OTHER, MEDICARE ==
[2023-06-16 07:36] VITALS: BP 126/66
== END 2023-06-16 08:20 | disposition home or self-care (01) ==
LOC: ATC 02:10
DX: M86.611 Other chronic osteomyelitis, right shoulder (principal)
CPT/HCPCS: 96365; J3370

== ENCOUNTER 2023-06-17 04:11 | Day surgery (SDC) | payer OTHER, MEDICARE ==
[2023-06-17 07:35] VITALS: BP 123/58
[2023-06-17 08:21] LABS: Creatinine, Blood 1.11 mg/dL (0.60-1.20); Vancomycin, Trough 17.7 ug/mL (5.0-10.0)
== END 2023-06-17 09:34 | disposition home or self-care (01) ==
LOC: ATC 04:11
PROVIDERS: Family Medicine
DX: M86.411 Chronic osteomyelitis with draining sinus, right shoulder (principal); I25.10 Atherosclerotic heart disease of native coronary artery without angina pectoris; Z86.73 Personal history of transient ischemic attack (TIA), and cerebral infarction without residual deficits; I10 Essential (primary) hypertension
CPT/HCPCS: 80202; 82565; 96365; J3370

== ENCOUNTER 2023-06-18 04:19 | Day surgery (SDC) | payer OTHER, MEDICARE ==
[2023-06-18 07:42] VITALS: BP 140/73
== END 2023-06-18 08:26 | disposition home or self-care (01) ==
LOC: ATC 04:19
DX: M86.411 Chronic osteomyelitis with draining sinus, right shoulder (principal); I25.10 Atherosclerotic heart disease of native coronary artery without angina pectoris; I10 Essential (primary) hypertension
CPT/HCPCS: 96365; J3370

== ENCOUNTER 2023-06-19 04:03 | Day surgery (SDC) | payer OTHER, MEDICARE ==
[2023-06-19 07:59] VITALS: BP 125/67
== END 2023-06-19 08:37 | disposition home or self-care (01) ==
LOC: ATC 04:03
DX: M86.611 Other chronic osteomyelitis, right shoulder (principal)
CPT/HCPCS: 96365; J3370

== ENCOUNTER 2023-06-20 02:36 | Day surgery (SDC) | payer OTHER, MEDICARE ==
[2023-06-20 08:50] VITALS: BP 146/70
[2023-06-20 08:52] LABS: Creatinine, Blood 1.18 mg/dL (0.60-1.20); Vancomycin, Trough 18.6 ug/mL (5.0-10.0)
== END 2023-06-20 09:55 | disposition home or self-care (01) ==
LOC: ATC 02:36
DX: M86.411 Chronic osteomyelitis with draining sinus, right shoulder (principal); Z02.6 Encounter for examination for insurance purposes; Z79.899 Other long term (current) drug therapy
CPT/HCPCS: 80202; 82565; 96365; J3370

== ENCOUNTER 2023-06-21 03:56 | Day surgery (SDC) | payer OTHER, MEDICARE ==
[2023-06-21 07:42] VITALS: BP 139/78
== END 2023-06-21 08:22 | disposition home or self-care (01) ==
LOC: ATC 03:56
DX: M86.411 Chronic osteomyelitis with draining sinus, right shoulder (principal)
CPT/HCPCS: 96365; J3370

== ENCOUNTER 2023-06-22 01:32 | Day surgery (SDC) | payer OTHER, MEDICARE ==
[2023-06-22 07:34] VITALS: BP 113/77
== END 2023-06-22 08:15 | disposition home or self-care (01) ==
LOC: ATC 01:32
DX: M86.411 Chronic osteomyelitis with draining sinus, right shoulder (principal)
CPT/HCPCS: 96365; J3370

== ENCOUNTER 2023-06-23 02:41 | Day surgery (SDC) | payer OTHER, MEDICARE ==
[2023-06-23 07:58] LABS: Creatinine, Blood 1.19 mg/dL (0.60-1.20); Vancomycin, Trough 18.6 ug/mL (5.0-10.0)
[2023-06-23 08:34] VITALS: BP 149/62
== END 2023-06-23 09:22 | disposition home or self-care (01) ==
LOC: ATC 02:41
PROVIDERS: Family Medicine
DX: M86.411 Chronic osteomyelitis with draining sinus, right shoulder (principal)
CPT/HCPCS: 80202; 82565; 96365; J3370

== ENCOUNTER 2023-06-24 00:33 | Day surgery (SDC) | payer OTHER, MEDICARE ==
[2023-06-24 07:52] VITALS: BP 122/72
== END 2023-06-24 08:38 | disposition home or self-care (01) ==
LOC: ATC 00:33
DX: M86.411 Chronic osteomyelitis with draining sinus, right shoulder (principal)
CPT/HCPCS: 96365; J3370

== ENCOUNTER 2023-06-25 00:48 | Day surgery (SDC) | payer OTHER, MEDICARE ==
[2023-06-25 10:17] VITALS: BP 119/72
[2023-06-26] MEDS ORDERED: DEPO-TESTO200 MG/18 IM (08:46)
[2023-06-26] MEDS ORDERED: BUPRENORPHINE HC8 MG SL (08:46)
[2023-06-26] MEDS ORDERED: NEURONTIN300 MG PO (08:47)
[2023-06-26] MEDS ORDERED: JANTOVEN2 MG PO (08:47)
== END 2023-06-25 11:05 | disposition home or self-care (01) ==
LOC: ATC 00:48
DX: M86.611 Other chronic osteomyelitis, right shoulder (principal)
CPT/HCPCS: 96365; J3370

== ENCOUNTER 2023-06-26 01:01 | Day surgery (SDC) | payer OTHER, MEDICARE ==
[2023-06-26 08:38] VITALS: BP 144/70
[2023-06-26] MEDS ORDERED: DEPO-TESTO200 MG/18 IM (08:46)
[2023-06-26] MEDS ORDERED: BUPRENORPHINE HC8 MG SL (08:46)
[2023-06-26] MEDS ORDERED: NEURONTIN300 MG PO (08:47)
[2023-06-26] MEDS ORDERED: JANTOVEN2 MG PO (08:47)
== END 2023-06-26 09:20 | disposition home or self-care (01) ==
LOC: ATC 01:01
DX: M86.611 Other chronic osteomyelitis, right shoulder (principal)
CPT/HCPCS: 96365; J3370

== ENCOUNTER 2023-07-23 17:52 | Emergency (ER) | payer OTHER ==
[~2023-07-23] VITALS: Ht 175.3 cm; Wt 77.1 kg
[~2023-07-23 17:52] MED LIST changes: +BUPRENORPHINE HC8 MG SL; +DEPO-TESTO200 MG/18 IM; +JANTOVEN2 MG PO; +NEURONTIN300 MG PO
[2023-07-23 18:04] VITALS: BP 169/83
== END 2023-07-23 18:24 | disposition left against medical advice (07) ==
LOC: ER 17:52
DX: Z53.21 Procedure and treatment not carried out due to patient leaving prior to being seen by health care provider (principal)
CPT/HCPCS: 99281

== ENCOUNTER 2023-07-26 01:07 | Day surgery (SDC) | payer OTHER ==
[2023-07-26] MEDS ORDERED: ERTAPENEM1 G1 IV (08:33)
[2023-07-26 08:34] VITALS: BP 116/66
== END 2023-07-26 08:45 | disposition home or self-care (01) ==
LOC: ATC 01:07
DX: M86.411 Chronic osteomyelitis with draining sinus, right shoulder (principal); I25.2 Old myocardial infarction; I10 Essential (primary) hypertension; E78.5 Hyperlipidemia, unspecified
CPT/HCPCS: 96374; J1335

== ENCOUNTER 2023-07-27 03:23 | Day surgery (SDC) | payer OTHER ==
[~2023-07-27 03:23] MED LIST changes: +ERTAPENEM1 G1 IV
[2023-07-27 08:16] VITALS: BP 120/69
== END 2023-07-27 08:36 | disposition home or self-care (01) ==
LOC: ATC 03:23
DX: M86.411 Chronic osteomyelitis with draining sinus, right shoulder (principal); I25.2 Old myocardial infarction; I10 Essential (primary) hypertension; E78.5 Hyperlipidemia, unspecified
CPT/HCPCS: 96374; J1335

== ENCOUNTER 2023-07-28 03:54 | Day surgery (SDC) | payer OTHER ==
[2023-07-28 08:33] VITALS: BP 102/58
== END 2023-07-28 08:59 | disposition home or self-care (01) ==
LOC: ATC 03:54
DX: M86.411 Chronic osteomyelitis with draining sinus, right shoulder (principal)
CPT/HCPCS: 96374; J1335

== ENCOUNTER 2023-07-29 01:56 | Day surgery (SDC) | payer OTHER ==
[2023-07-29 08:07] VITALS: BP 112/70
== END 2023-07-29 08:23 | disposition home or self-care (01) ==
LOC: ATC 01:56
DX: M86.411 Chronic osteomyelitis with draining sinus, right shoulder (principal)
CPT/HCPCS: 96365; J1335

== ENCOUNTER 2023-07-30 02:28 | Day surgery (SDC) | payer OTHER ==
[2023-07-30 08:41] VITALS: BP 118/58
== END 2023-07-30 08:56 | disposition home or self-care (01) ==
LOC: ATC 02:28
DX: M86.411 Chronic osteomyelitis with draining sinus, right shoulder (principal); E78.5 Hyperlipidemia, unspecified; I10 Essential (primary) hypertension; I25.2 Old myocardial infarction; Z79.899 Other long term (current) drug therapy; Z79.01 Long term (current) use of anticoagulants
CPT/HCPCS: 96365; J1335

== ENCOUNTER 2023-07-31 02:47 | Day surgery (SDC) | payer OTHER ==
[2023-07-31 09:08] VITALS: BP 121/70
== END 2023-07-31 09:15 | disposition home or self-care (01) ==
LOC: ATC 02:47
DX: M86.411 Chronic osteomyelitis with draining sinus, right shoulder (principal); I25.2 Old myocardial infarction; I10 Essential (primary) hypertension; E78.5 Hyperlipidemia, unspecified
CPT/HCPCS: 96365; J1335

== ENCOUNTER 2023-08-01 04:29 | Day surgery (SDC) | payer OTHER ==
[2023-08-01 08:47] VITALS: BP 113/82
== END 2023-08-01 08:58 | disposition home or self-care (01) ==
LOC: ATC 04:29
DX: M86.411 Chronic osteomyelitis with draining sinus, right shoulder (principal); I10 Essential (primary) hypertension; I25.2 Old myocardial infarction; E78.5 Hyperlipidemia, unspecified; Z88.0 Allergy status to penicillin; Z88.1 Allergy status to other antibiotic agents; Z79.899 Other long term (current) drug therapy; Z79.01 Long term (current) use of anticoagulants
CPT/HCPCS: 96374; J1335

== ENCOUNTER → 2023-08-02 | Outpatient (CLI) | payer OTHER ==
[2023-08-03 10:10] LABS: ALKALINE PHOSPHATASE, S 157 IU/L (44-121); ALT (SGPT) 23 IU/L (0-44); AST (SGOT) 23 IU/L (0-40); BILIRUBIN, TOTAL <0.2 mg/dL (0.0-1.2); BUN 38 mg/dL (8-27); BUN/CREATININE RATIO 32 (10-24); CARBON DIOXIDE, TOTAL 21 mmol/L (20-29); CHLORIDE, SERUM 106 mmol/L (96-106); GLOBULIN, TOTAL 3.5 g/dL (1.5-4.5); GLUCOSE, SERUM 128 mg/dL (70-99); PHOSPHORUS, SERUM 2.7 mg/dL (2.8-4.1); POTASSIUM, SERUM 5.7 mmol/L (3.5-5.2); SODIUM, SERUM 136 mmol/L (134-144)
== END | disposition home or self-care (01) ==
LOC: LAB 13:07 → LAB SHORT 13:07
PROVIDERS: Internal Medicine Hematology & Oncology
DX: D50.0 Iron deficiency anemia secondary to blood loss (chronic) (principal); E53.8 Deficiency of other specified B group vitamins
CPT/HCPCS: 80053; 80069; 82607; 82746; 84100

== ENCOUNTER 2023-08-03 04:34 | Day surgery (SDC) | payer OTHER ==
[2023-08-03 08:30] VITALS: BP 132/84
== END 2023-08-03 08:47 | disposition home or self-care (01) ==
LOC: ATC 04:34
DX: M86.411 Chronic osteomyelitis with draining sinus, right shoulder (principal); I10 Essential (primary) hypertension; E78.5 Hyperlipidemia, unspecified
CPT/HCPCS: 96365; J1335

== ENCOUNTER 2023-08-04 04:22 | Day surgery (SDC) | payer OTHER ==
[2023-08-04 08:36] VITALS: BP 131/79
== END 2023-08-04 08:55 | disposition home or self-care (01) ==
LOC: ATC 04:22
DX: M86.411 Chronic osteomyelitis with draining sinus, right shoulder (principal); I25.2 Old myocardial infarction; I10 Essential (primary) hypertension; E78.5 Hyperlipidemia, unspecified; Z79.899 Other long term (current) drug therapy
CPT/HCPCS: 96365; J1335

== ENCOUNTER 2023-08-05 02:47 | Day surgery (SDC) | payer OTHER ==
[2023-08-05 08:24] VITALS: BP 105/61
== END 2023-08-05 08:45 | disposition home or self-care (01) ==
LOC: ATC 02:47
DX: M86.411 Chronic osteomyelitis with draining sinus, right shoulder (principal); I10 Essential (primary) hypertension; E78.5 Hyperlipidemia, unspecified; I25.2 Old myocardial infarction; Z88.0 Allergy status to penicillin
CPT/HCPCS: 96374; J1335

== ENCOUNTER 2023-08-06 00:28 | Day surgery (SDC) | payer OTHER ==
[2023-08-06 08:57] VITALS: BP 108/76
== END 2023-08-06 09:11 | disposition home or self-care (01) ==
LOC: ATC 00:28
DX: M86.411 Chronic osteomyelitis with draining sinus, right shoulder (principal); I25.2 Old myocardial infarction; I10 Essential (primary) hypertension; E78.5 Hyperlipidemia, unspecified; Z79.899 Other long term (current) drug therapy
CPT/HCPCS: 96374; J1335

== ENCOUNTER 2023-08-07 02:45 | Day surgery (SDC) | payer OTHER ==
[2023-08-07 08:34] VITALS: BP 119/66
== END 2023-08-07 08:49 | disposition home or self-care (01) ==
LOC: ATC 02:45
DX: M86.411 Chronic osteomyelitis with draining sinus, right shoulder (principal); I25.2 Old myocardial infarction; I10 Essential (primary) hypertension; E78.5 Hyperlipidemia, unspecified; Z79.899 Other long term (current) drug therapy
CPT/HCPCS: 96374; J1335

== ENCOUNTER 2023-08-08 01:36 | Day surgery (SDC) | payer OTHER ==
[2023-08-08 08:23] VITALS: BP 122/65
== END 2023-08-08 08:40 | disposition home or self-care (01) ==
LOC: ATC 01:36
DX: M86.411 Chronic osteomyelitis with draining sinus, right shoulder (principal); I25.2 Old myocardial infarction; I10 Essential (primary) hypertension; E78.5 Hyperlipidemia, unspecified; Z79.899 Other long term (current) drug therapy
CPT/HCPCS: 96374; J1335

== ENCOUNTER 2023-08-21 00:56 | Inpatient (IN) | payer OTHER ==
[~2023-08-21] VITALS: Ht 167.6 cm; Wt 76.4 kg
[~2023-08-21 00:56] MED LIST changes: -Prinivil10 MG PO
[2023-08-21 01:19] LABS: BASOPHILS ABSOLUTE AUTO 0.03 K/mm3 (0.00-0.23); BASOPHILS PERCENT AUTO 0 % (0-2); EOSINOPHILS ABSOLUTE AUTO 0.32 K/mm3 (0.00-0.68); EOSINOPHILS PERCENT AUTO 4 % (0-6); Hematocrit 27.9 % (37.0-53.0); Hemoglobin 9.1 g/dL (13.5-17.5); IMMATURE GRAN ABSOLUTE AUTO 0.02 K/mm3 (0.00-0.10); IMMATURE GRAN PERCENT AUTO 0 % (0-1); LYMPHOCYTES ABSOLUTE AUTO 2.01 K/mm3 (0.84-5.20); LYMPHOCYTES PERCENT AUTO 25 % (21-46); MONOCYTES ABSOLUTE AUTO 0.94 K/mm3 (0.16-1.47); MONOCYTES PERCENT AUTO 12 % (4-13); Mean Corpuscular HGB 31.6 pg (26.0-34.0); Mean Corpuscular HGB Conc 32.6 g/dL (31.5-36.5); Mean Corpuscular Volume 97 fL (80-100); Mean Platelet Volume 9.1 fL (9.1-12.4); NEUTROPHILS ABSOLUTE AUTO 4.78 K/mm3 (1.96-9.15); NEUTROPHILS PERCENT AUTO 59 % (41-73); Platelet Count 124 K/mm3 (150-400); RDW Coefficient Variation 13.1 % (11.7-14.2); RDW Standard Deviation 46.6 fL (35.1-46.3); Red Blood Cell Count 2.88 M/mm3 (4.30-5.90)
[2023-08-21] MEDS ORDERED: FentaNYL Citrate 50 MCG/ML 2 ML Injection IV ONE (01:30)
[2023-08-21] MEDS ORDERED: Vancomycin HCL 1,250 MG in NS 250 ML IV ONE (01:35)
[2023-08-21 01:38] LABS: Alanine Aminotransfer (ALT/SGP 22 U/L (12-78); Albumin, Blood 3.2 g/dL (3.4-5.0); Albumin/Globulin Ratio 0.7 (0.8-1.8); Alk Phos 125 U/L (50-136); Anion Gap Unable to Calculate mmol/L (6-16); Aspartate Aminotrans (AST/SGOT 19 U/L (12-37); Bilirubin, Total 0.3 mg/dL (0.1-1.0); Blood Urea Nitrogen 39 mg/dL (8-24); Bun/Creatinine Ratio 26.9 (12.0-20.0); CO2, Blood 27 mmol/L (21-32); Calcium, Blood 8.2 mg/dL (8.5-10.1); Chloride, Blood 113 mmol/L (98-108); Creatinine, Blood 1.45 mg/dL (0.60-1.20); Globulin, Blood 4.4 g/dL (2.2-4.0); Glomerular Filtration Rate 52 (60-); Glucose, Blood 110 mg/dL (70-99); Potassium, Blood 4.6 mmol/L (3.5-5.5); Sodium, Blood 139 mmol/L (136-145); Total Protein, Blood 7.6 g/dL (6.4-8.2)
[2023-08-21] MEDS ORDERED: NS 1,000 ML IV SCH ×3 (02:15→06:30)
[2023-08-21] MEDS ORDERED: Ketorolac Tromethamine 30mg Vial IV ONE (05:30)
[2023-08-21] MEDS ORDERED: Ondansetron HCl 2 MG / ML 2ML Vial IV PRN (06:15)
[2023-08-21] MEDS ORDERED: FLU VACC QS2023-24(6MOS UP)/PF 60 MCG/0.5 ML SYRINGE IM ONE (06:20)
[2023-08-21] MEDS ORDERED: FentaNYL Citrate 50 MCG/ML 2 ML Injection IV PRN (06:20)
--- NOTE | 2023-08-21 07:27 | NUR ---
RN TO RN REPORT FROM ANTWAN MONET IN ER AT 4040.
[2023-08-21 07:48] VITALS: BP 112/66
[2023-08-21 07:57] LABS: International Normalized Ratio 2.74; Prothrombin Time Results 27.2 Sec (9.7-11.5)
[2023-08-21] MEDS ORDERED: Modafinil 200 MG Tab PO SCH (09:00)
[2023-08-21] MEDS ORDERED: buprenorphine HCL 2 MG TAB.SUBL SL SCH (09:00)
[2023-08-21] MEDS ORDERED: AmLODIPine Besylate 5 MG Tab PO SCH (09:00)
[2023-08-21] MEDS ORDERED: Pregabalin 75 MG Cap PO SCH (09:00)
[2023-08-21] MEDS ORDERED: HYDROcodone 5-APAP 325 TAB PO PRN (11:45)
[2023-08-21] MEDS ORDERED: Lactobacil 2-S.Thermo-Bifido 1 1 Cap PO SCH (12:00)
[2023-08-21] MEDS ORDERED: Lactated Ringer's 1,000 ML IV SCH (14:20)
[2023-08-21 15:47] VITALS: BP 110/73
--- NOTE | 2023-08-21 17:02 | NUR ---
SHIFT SUMMARY PATIENT ARRIVED TO UNIT AT 0739 FROM ER. HE DOES NOT C/O PAIN AT THAT TIME. HE REPORTS HE ONLY TAKES BUPRENORPHINE FOR GENERAL/ARM PAIN AND THAT HE TAKES GABAPENTIN AND LYRICA FOR NERVE PAIN. HE IS AOX4 AND CALLS APPROPRIATELY. NO ACUTE EVENTS DURING SHIFT. RL IS ABLE TO MAKE HIS NEEDS KNOWN. FAMILY AT BEDSIDE.
[2023-08-21 20:10] VITALS: BP 119/64
[2023-08-21] MEDS ORDERED: Vancomycin HCL 750 MG in NS 100 ML IV SCH (23:00)
[2023-08-22 04:10] VITALS: BP 104/58
[2023-08-22 05:47] LABS: BASOPHILS ABSOLUTE AUTO 0.02 K/mm3 (0.00-0.23); BASOPHILS PERCENT AUTO 0 % (0-2); EOSINOPHILS ABSOLUTE AUTO 0.38 K/mm3 (0.00-0.68); EOSINOPHILS PERCENT AUTO 6 % (0-6); Hematocrit 24.4 % (37.0-53.0); IMMATURE GRAN ABSOLUTE AUTO 0.02 K/mm3 (0.00-0.10); IMMATURE GRAN PERCENT AUTO 0 % (0-1); LYMPHOCYTES ABSOLUTE AUTO 1.57 K/mm3 (0.84-5.20); LYMPHOCYTES PERCENT AUTO 24 % (21-46); MONOCYTES ABSOLUTE AUTO 0.79 K/mm3 (0.16-1.47); MONOCYTES PERCENT AUTO 12 % (4-13); Mean Corpuscular HGB Conc 32.8 g/dL (31.5-36.5); Mean Corpuscular Volume 98 fL (80-100); Mean Platelet Volume 9.4 fL (9.1-12.4); NEUTROPHILS ABSOLUTE AUTO 3.84 K/mm3 (1.96-9.15); NEUTROPHILS PERCENT AUTO 58 % (41-73); Platelet Count 112 K/mm3 (150-400); RDW Coefficient Variation 13.2 % (11.7-14.2); RDW Standard Deviation 46.9 fL (35.1-46.3); White Blood Cell Count 6.62 K/mm3 (4.00-11.30)
[2023-08-22 06:12] LABS: Albumin, Blood 2.5 g/dL (3.4-5.0); Albumin/Globulin Ratio 0.7 (0.8-1.8); Bilirubin, Total 0.3 mg/dL (0.1-1.0); Bun/Creatinine Ratio 25.4 (12.0-20.0); Calcium, Blood 7.9 mg/dL (8.5-10.1); Creatinine, Blood 1.38 mg/dL (0.60-1.20); Globulin, Blood 3.8 g/dL (2.2-4.0); Potassium, Blood 5.1 mmol/L (3.5-5.5); Total Protein, Blood 6.3 g/dL (6.4-8.2)
--- NOTE | 2023-08-22 06:28 | NUR ---
SHIFT SUMMARY PT IS A&O X4, VSS, ON RA, SBA. MULTIPLE XRAYS DONE OF R.ARM PER , RESULTS PENDING, PT ENC TO ELEVATE RA, PT NON COMPLIANT W/ELEVATION, CIRC, PAIN MEDS, ABX & LR INFUSING PER EMAR, FAMILY AT BEDSIDE, CALL LIGHT IN REACH, RESP UNLABORED, WCTM & REPORT TO DAY RN
[2023-08-22] MEDS ORDERED: Lisinopril 10 MG Tab PO SCH (08:00)
[2023-08-22 08:14] VITALS: BP 118/68
[2023-08-22] MEDS ORDERED: Atorvastatin 10 MG Tab PO SCH (09:00)
[2023-08-22 11:26] LABS: International Normalized Ratio 2.36; Prothrombin Time Results 23.6 Sec (9.7-11.5)
[2023-08-22] MEDS ORDERED: Phytonadione 5 MG Tab PO ONE (12:30)
[2023-08-22 13:49] LABS: Hematocrit 27.4 % (37.0-53.0); Hemoglobin 8.9 g/dL (13.5-17.5)
[2023-08-22 15:42] LABS: International Normalized Ratio 2.19
[2023-08-22 16:08] VITALS: BP 129/75
--- NOTE | 2023-08-22 17:11 | NUR ---
PT IS ALERT AND ORIENTED X4. ABLE TO MAKE NEEDS KNOWN. PLAN IS TO ASPIRATE FLUID FROM RIGHT ELBOW TOMORROW ONCE INR <2.0. PT HAS HAD FAMILY AT BEDSIDE DURING THIS SHIFT. CALLS APPROPRIATELY, PAIN MANAGED PER EMAR. INDEPENDENT, FREQUENT WALKS AROUND THE UNIT.
[2023-08-22 20:23] VITALS: BP 130/73
[2023-08-23 02:48] VITALS: BP 103/62
--- NOTE | 2023-08-23 03:54 | NUR ---
SHIFT SUMMARY VSS. PT SHOWERED AND SLEPT WELL T/O THE NIGHT. R ELBOW NOTED TO BE SWOLLEN AND HOT TO THE TOUCH. PT DECLINED PUTTING ICE ON IT T/O THE NIGHT. MEDICATED FOR PAIN ONCE, PT REPORTS THE PAIN MEDICATION DOSEN'T HELP MUCH. REMAINED INDEP T/O THE NIGHT. VOIDING W/O DIFFICULTY AND TOLLERATING PO INTAKE. OVERALL NO ACUTE EVENTS NOTED. PT STATED HE WANTS TO LEAVE THE HOSPITAL TODAY. PLAN FOR POSSIBLE ASPIRATION OF ELBOW W/ORTHO.
[2023-08-23 04:39] LABS: BASOPHILS ABSOLUTE AUTO 0.03 K/mm3 (0.00-0.23); BASOPHILS PERCENT AUTO 1 % (0-2); EOSINOPHILS ABSOLUTE AUTO 0.45 K/mm3 (0.00-0.68); EOSINOPHILS PERCENT AUTO 7 % (0-6); Hematocrit 25.1 % (37.0-53.0); Hemoglobin 8.3 g/dL (13.5-17.5); IMMATURE GRAN ABSOLUTE AUTO 0.03 K/mm3 (0.00-0.10); IMMATURE GRAN PERCENT AUTO 1 % (0-1); LYMPHOCYTES ABSOLUTE AUTO 1.82 K/mm3 (0.84-5.20); LYMPHOCYTES PERCENT AUTO 29 % (21-46); MONOCYTES ABSOLUTE AUTO 0.79 K/mm3 (0.16-1.47); MONOCYTES PERCENT AUTO 13 % (4-13); Mean Corpuscular HGB Conc 33.1 g/dL (31.5-36.5); Mean Corpuscular Volume 97 fL (80-100); Mean Platelet Volume 9.5 fL (9.1-12.4); NEUTROPHILS ABSOLUTE AUTO 3.12 K/mm3 (1.96-9.15); NEUTROPHILS PERCENT AUTO 50 % (41-73); Platelet Count 106 K/mm3 (150-400); RDW Coefficient Variation 12.9 % (11.7-14.2); RDW Standard Deviation 45.8 fL (35.1-46.3); Red Blood Cell Count 2.59 M/mm3 (4.30-5.90); White Blood Cell Count 6.24 K/mm3 (4.00-11.30)
[2023-08-23 04:53] LABS: International Normalized Ratio 1.23; Prothrombin Time Results 12.8 Sec (9.7-11.5)
[2023-08-23 05:01] LABS: Anion Gap Unable to Calculate mmol/L (6-16); Blood Urea Nitrogen 27 mg/dL (8-24); Bun/Creatinine Ratio 22.7 (12.0-20.0); CO2, Blood 27 mmol/L (21-32); Calcium, Blood 8.3 mg/dL (8.5-10.1); Chloride, Blood 114 mmol/L (98-108); Creatinine, Blood 1.19 mg/dL (0.60-1.20); Glomerular Filtration Rate 65 (60-); Glucose, Blood 96 mg/dL (70-99); Potassium, Blood 4.8 mmol/L (3.5-5.5); Sodium, Blood 140 mmol/L (136-145)
[2023-08-23 08:13] VITALS: BP 121/79
[2023-08-23] MEDS ORDERED: NS 250 ML IV PRN (08:40)
[2023-08-23] MEDS ORDERED: LINE600 PO (13:18)
--- NOTE | 2023-08-23 14:04 | NUR ---
PT DISCHARGED HOME. FAMILY AT BEDSIDE. ASPIRATION OF R ELBOW FLUIDS COMPLETED BEFORE DISCHAGE. SENT FOR CULTURE. PT TO FOLLOW UP WITH PCP. DISCHARGE INSTRUCTIONS DISCUSSED WITH PT AND SPOUSE. NO QUESTIONS AT THIS TIME. ALERT AND ORIENTED PT WALKED OUT INDEPENDENTLY.
== END 2023-08-23 13:50 | disposition home or self-care (01) | DRG 540 ==
LOC: ER 00:56 → MEDS 00:57 → SURS 00:57 → MEDS 06:14 → ENPENDDIS 08-23 13:02 → MEDS 08-23 13:50
PROVIDERS: Family Medicine; Hospitalist; Internal Medicine; ADMIT Emergency Medicine
PROC: 0R9L3ZZ Drainage of Right Elbow Joint, Percutaneous Approach (ICD-10-PCS; principal; 2023-08-23)
DX: M86.621 Other chronic osteomyelitis, right humerus (principal); I47.10 Supraventricular tachycardia, unspecified; L03.113 Cellulitis of right upper limb; M00.9 Pyogenic arthritis, unspecified; I12.9 Hypertensive chronic kidney disease with stage 1 through stage 4 chronic kidney disease, or unspecified chronic kidney disease; N18.9 Chronic kidney disease, unspecified; E78.5 Hyperlipidemia, unspecified; G25.81 Restless legs syndrome; F11.90 Opioid use, unspecified, uncomplicated; K21.9 Gastro-esophageal reflux disease without esophagitis; G62.9 Polyneuropathy, unspecified; D69.6 Thrombocytopenia, unspecified; G47.419 Narcolepsy without cataplexy; I25.10 Atherosclerotic heart disease of native coronary artery without angina pectoris; D63.1 Anemia in chronic kidney disease; Z86.718 Personal history of other venous thrombosis and embolism; Z79.01 Long term (current) use of anticoagulants; Z98.890 Other specified postprocedural states; Z96.641 Presence of right artificial hip joint; Z88.1 Allergy status to other antibiotic agents; Z88.0 Allergy status to penicillin; Z88.8 Allergy status to other drugs, medicaments and biological substances; Z79.2 Long term (current) use of antibiotics; Z79.811 Long term (current) use of aromatase inhibitors; Z79.899 Other long term (current) drug therapy; Z86.14 Personal history of Methicillin resistant Staphylococcus aureus infection; Z95.5 Presence of coronary angioplasty implant and graft
CPT/HCPCS: 20606; 36415; 73030; 73060; 73070; 73100; 73201; 80048; 80053; 83605; 83880; 85014; 85018; 85025; 85610; 86140; 87040; 87070; 87075; 87205; 93931; 93971; 96361; 96365-59; 96366; 96375; 99285-25; A9270; J1885; J2185; J3010; J3370; J7030; J7050; J7120; Q9967

== ENCOUNTER → 2023-10-11 | Outpatient (CLI) | payer OTHER ==
[~2023-10-11] MED LIST changes: +AMLO5 PO; +LINE600 PO
[2023-10-11 19:37] LABS: Percent Saturation 43.7 % (20.0-50.0)
== END ==
LOC: LAB SHORT 18:25 → LAB 18:25
PROVIDERS: Internal Medicine Hematology & Oncology
DX: D50.0 Iron deficiency anemia secondary to blood loss (chronic) (principal)
CPT/HCPCS: 82728; 83540; 83550

== ENCOUNTER 2023-11-09 09:04 | Emergency (ER) | payer OTHER ==
[~2023-11-09] VITALS: Ht 172.7 cm; Wt 72.6 kg
[2023-11-09 10:50] LABS: BASOPHILS ABSOLUTE AUTO 0.03 K/mm3 (0.00-0.23); BASOPHILS PERCENT AUTO 1 % (0-2); EOSINOPHILS ABSOLUTE AUTO 0.27 K/mm3 (0.00-0.68); EOSINOPHILS PERCENT AUTO 4 % (0-6); Hematocrit 27.3 % (37.0-53.0); Hemoglobin 8.9 g/dL (13.5-17.5); IMMATURE GRAN ABSOLUTE AUTO 0.02 K/mm3 (0.00-0.10); IMMATURE GRAN PERCENT AUTO 0 % (0-1); LYMPHOCYTES ABSOLUTE AUTO 1.81 K/mm3 (0.84-5.20); LYMPHOCYTES PERCENT AUTO 27 % (21-46); MONOCYTES ABSOLUTE AUTO 0.47 K/mm3 (0.16-1.47); MONOCYTES PERCENT AUTO 7 % (4-13); Mean Corpuscular HGB 32.5 pg (26.0-34.0); Mean Corpuscular HGB Conc 32.6 g/dL (31.5-36.5); Mean Corpuscular Volume 100 fL (80-100); Mean Platelet Volume 9.1 fL (9.1-12.4); NEUTROPHILS ABSOLUTE AUTO 4.01 K/mm3 (1.96-9.15); NEUTROPHILS PERCENT AUTO 61 % (41-73); Platelet Count 176 K/mm3 (150-400); RDW Coefficient Variation 13.8 % (11.7-14.2); RDW Standard Deviation 49.6 fL (35.1-46.3); Red Blood Cell Count 2.74 M/mm3 (4.30-5.90); White Blood Cell Count 6.61 K/mm3 (4.00-11.30)
[2023-11-09 11:00] VITALS: BP 133/85
[2023-11-09 11:08] LABS: Albumin, Blood 2.9 g/dL (3.4-5.0); Albumin/Globulin Ratio 0.6 (0.8-1.8); Bilirubin, Total 0.1 mg/dL (0.1-1.0); Calcium, Blood 8.7 mg/dL (8.5-10.1); Creatinine, Blood 1.21 mg/dL (0.60-1.20); Globulin, Blood 5.1 g/dL (2.2-4.0); Potassium, Blood 5.6 mmol/L (3.5-5.5)
== END 2023-11-09 13:10 | disposition home or self-care (01) ==
LOC: ER 09:04
PROVIDERS: Student in an Organized Health Care Education/Training Program
DX: M96.89 Other intraoperative and postprocedural complications and disorders of the musculoskeletal system (principal); I12.0 Hypertensive chronic kidney disease with stage 5 chronic kidney disease or end stage renal disease; N18.9 Chronic kidney disease, unspecified; E78.5 Hyperlipidemia, unspecified; E87.5 Hyperkalemia; Z86.73 Personal history of transient ischemic attack (TIA), and cerebral infarction without residual deficits; Z87.39 Personal history of other diseases of the musculoskeletal system and connective tissue; Z88.0 Allergy status to penicillin; Z88.1 Allergy status to other antibiotic agents; Z88.8 Allergy status to other drugs, medicaments and biological substances; Z79.01 Long term (current) use of anticoagulants; Z79.899 Other long term (current) drug therapy
CPT/HCPCS: 73030; 73201; 80053; 83605; 85025; 99284-25; Q9967

== ENCOUNTER 2024-03-10 08:33 | Day surgery (SDC) | payer OTHER ==
[2024-03-10] MEDS ORDERED: Vancomycin HCL 1,500 MG in NS 250 ML IV SCH (08:45)
[2024-03-10] MEDS ORDERED: Ciprofloxacin 400MG/D5 200ML 200 ML IV SCH (08:45)
[2024-03-10] MEDS ORDERED: SULFAMETHOXAZO1 EAC1 PO (13:37)
[2024-03-10 13:38] VITALS: BP 114/64
== END 2024-03-10 15:24 | disposition home or self-care (01) ==
LOC: ATC 08:33
DX: M86.621 Other chronic osteomyelitis, right humerus (principal); I12.9 Hypertensive chronic kidney disease with stage 1 through stage 4 chronic kidney disease, or unspecified chronic kidney disease; N18.9 Chronic kidney disease, unspecified; E78.5 Hyperlipidemia, unspecified; N40.0 Benign prostatic hyperplasia without lower urinary tract symptoms; I25.10 Atherosclerotic heart disease of native coronary artery without angina pectoris; Z88.0 Allergy status to penicillin; Z88.1 Allergy status to other antibiotic agents; Z79.01 Long term (current) use of anticoagulants; Z79.899 Other long term (current) drug therapy
CPT/HCPCS: 96365; 96366; 96368; J0744; J3370; J7050

== ENCOUNTER 2024-03-11 07:06 | Day surgery (SDC) | payer OTHER ==
[~2024-03-11 07:06] MED LIST changes: +SULFAMETHOXAZO1 EAC1 PO
[2024-03-11] MEDS ORDERED: Ciprofloxacin 400MG/D5 200ML 200 ML IV SCH (07:20)
[2024-03-11] MEDS ORDERED: Vancomycin HCL 1,500 MG in NS 250 ML IV SCH (07:20)
[2024-03-11 07:30] VITALS: BP 119/70
[2024-03-11 16:16] VITALS: BP 104/66
== END 2024-03-11 17:53 | disposition home or self-care (01) ==
LOC: ATC 07:06
DX: M86.621 Other chronic osteomyelitis, right humerus (principal); I12.9 Hypertensive chronic kidney disease with stage 1 through stage 4 chronic kidney disease, or unspecified chronic kidney disease; N18.9 Chronic kidney disease, unspecified; E78.5 Hyperlipidemia, unspecified; Z88.0 Allergy status to penicillin; Z88.1 Allergy status to other antibiotic agents; Z79.01 Long term (current) use of anticoagulants; Z79.899 Other long term (current) drug therapy
CPT/HCPCS: 96365; 96368; J0744; J3370; J7050

== ENCOUNTER 2024-03-12 00:59 | Day surgery (SDC) | payer OTHER ==
[2024-03-12] MEDS ORDERED: Vancomycin HCL 1,500 MG in NS 250 ML IV SCH (06:00)
[2024-03-12] MEDS ORDERED: Ciprofloxacin 400MG/D5 200ML 200 ML IV SCH (06:00)
[2024-03-12 07:20] VITALS: BP 111/65
[2024-03-12 16:25] VITALS: BP 105/68
[2024-03-13] MEDS ORDERED: Ciprofloxacin 400MG/D5 200ML 200 ML IV SCH (07:00)
== END 2024-03-12 17:57 | disposition home or self-care (01) ==
LOC: ATC 00:59
DX: M86.621 Other chronic osteomyelitis, right humerus (principal); Z88.0 Allergy status to penicillin; I12.9 Hypertensive chronic kidney disease with stage 1 through stage 4 chronic kidney disease, or unspecified chronic kidney disease; N18.9 Chronic kidney disease, unspecified; E78.5 Hyperlipidemia, unspecified; Z88.1 Allergy status to other antibiotic agents; Z79.01 Long term (current) use of anticoagulants; Z79.899 Other long term (current) drug therapy
CPT/HCPCS: 96365; 96366; 96368; J0744; J3370; J7050

== ENCOUNTER → 2024-07-15 | Outpatient (CLI) | payer OTHER ==
[2024-07-15 14:24] LABS: BASOPHILS ABSOLUTE AUTO 0.02 K/mm3 (0.00-0.23); BASOPHILS PERCENT AUTO 0 % (0-2); EOSINOPHILS ABSOLUTE AUTO 0.21 K/mm3 (0.00-0.68); EOSINOPHILS PERCENT AUTO 4 % (0-6); Hematocrit 29.2 % (37.0-53.0); IMMATURE GRAN ABSOLUTE AUTO 0.02 K/mm3 (0.00-0.10); IMMATURE GRAN PERCENT AUTO 0 % (0-1); LYMPHOCYTES ABSOLUTE AUTO 1.76 K/mm3 (0.84-5.20); LYMPHOCYTES PERCENT AUTO 34 % (21-46); MONOCYTES ABSOLUTE AUTO 0.44 K/mm3 (0.16-1.47); MONOCYTES PERCENT AUTO 9 % (4-13); Mean Corpuscular HGB 33.1 pg (26.0-34.0); Mean Corpuscular HGB Conc 34.2 g/dL (31.5-36.5); Mean Corpuscular Volume 97 fL (80-100); Mean Platelet Volume 9.9 fL (9.1-12.4); NEUTROPHILS ABSOLUTE AUTO 2.67 K/mm3 (1.96-9.15); NEUTROPHILS PERCENT AUTO 52 % (41-73); Platelet Count 167 K/mm3 (150-400); RDW Standard Deviation 49.8 fL (35.1-46.3); Red Blood Cell Count 3.02 M/mm3 (4.30-5.90); White Blood Cell Count 5.12 K/mm3 (4.00-11.30)
== END ==
LOC: LAB 10:30 → LAB SHORT 10:30
PROVIDERS: Internal Medicine Hematology & Oncology
DX: D50.0 Iron deficiency anemia secondary to blood loss (chronic) (principal)
CPT/HCPCS: 82728; 83540; 83550; 85025

== ENCOUNTER 2025-01-01 15:25 | Emergency (ER) | payer OTHER ==
[~2025-01-01] VITALS: Ht 172.7 cm; Wt 95.2 kg
[~2025-01-01 15:25] MED LIST changes: +Celebrex50 MG PO; +ELIQUIS5 M2 PO; -OMEPRAZOLE MAGN20 MG PO; +VALS80 PO
[2025-01-01 16:38] LABS: BASOPHILS ABSOLUTE AUTO 0.02 K/mm3 (0.00-0.23); BASOPHILS PERCENT AUTO 0 % (0-2); EOSINOPHILS ABSOLUTE AUTO 0.27 K/mm3 (0.00-0.68); EOSINOPHILS PERCENT AUTO 5 % (0-6); Hematocrit 24.1 % (37.0-53.0); Hemoglobin 7.9 g/dL (13.5-17.5); IMMATURE GRAN ABSOLUTE AUTO 0.04 K/mm3 (0.00-0.10); IMMATURE GRAN PERCENT AUTO 1 % (0-1); LYMPHOCYTES ABSOLUTE AUTO 1.31 K/mm3 (0.84-5.20); LYMPHOCYTES PERCENT AUTO 24 % (21-46); MONOCYTES ABSOLUTE AUTO 0.41 K/mm3 (0.16-1.47); MONOCYTES PERCENT AUTO 8 % (4-13); Mean Corpuscular HGB 32.8 pg (26.0-34.0); Mean Corpuscular HGB Conc 32.8 g/dL (31.5-36.5); Mean Corpuscular Volume 100 fL (80-100); Mean Platelet Volume 10.2 fL (9.1-12.4); NEUTROPHILS ABSOLUTE AUTO 3.36 K/mm3 (1.96-9.15); NEUTROPHILS PERCENT AUTO 62 % (41-73); Platelet Count 149 K/mm3 (150-400); RDW Coefficient Variation 13.6 % (11.7-14.2); RDW Standard Deviation 49.6 fL (35.1-46.3); Red Blood Cell Count 2.41 M/mm3 (4.30-5.90); White Blood Cell Count 5.41 K/mm3 (4.00-11.30)
[2025-01-01] MEDS ORDERED: Ondansetron HCl 2 MG / ML 2ML Vial IV ONE (16:40)
[2025-01-01] MEDS ORDERED: Morphine Sulfate 4 MG/1 ML Injection IV ONE (16:40)
[2025-01-01 16:44] LABS: Bun/Creatinine Ratio 17.7 (12.0-20.0); Calcium, Blood 8.5 mg/dL (8.5-10.1); Creatinine, Blood 1.3 mg/dL (0.60-1.20); Potassium, Blood 4.6 mmol/L (3.5-5.5)
[2025-01-01 19:45] VITALS: BP 130/73
== END 2025-01-01 19:45 | disposition short-term general hospital (02) ==
LOC: ER 15:25
PROVIDERS: Emergency Medicine
DX: S72.001A Fracture of unspecified part of neck of right femur, initial encounter for closed fracture (principal); M97.01XA Periprosthetic fracture around internal prosthetic right hip joint, initial encounter; I12.9 Hypertensive chronic kidney disease with stage 1 through stage 4 chronic kidney disease, or unspecified chronic kidney disease; N18.9 Chronic kidney disease, unspecified; E78.5 Hyperlipidemia, unspecified; X58.XXXA Exposure to other specified factors, initial encounter; Z87.39 Personal history of other diseases of the musculoskeletal system and connective tissue; Z86.2 Personal history of diseases of the blood and blood-forming organs and certain disorders involving the immune mechanism; Z86.79 Personal history of other diseases of the circulatory system; Z79.899 Other long term (current) drug therapy; Z88.0 Allergy status to penicillin; Z88.5 Allergy status to narcotic agent; Z88.1 Allergy status to other antibiotic agents
CPT/HCPCS: 73502; 80048; 85025; 96374; 96375; 99285-25; J2270; J2405